=== PATIENT | male | born 1970 | race Hispanic/Latino ===

== ENCOUNTER 2018-05-29 08:00 | Emergency (ER) | payer SELFPAY ==
[2018-05-29 08:43] LABS: Bilirubin Small (Negative); Blood, Urine Small (Negative); Clarity CLEAR (Clear); Glucose, Urine (Dipstick) Negative (Negative); Leukocyte Negative (Negative); Nitrite Negative (Negative); Protein, Urine (Dipstick) 30 mg/dL (Neg-Trace); Specific Gravity, Urine 1.031 (1.002-1.036); pH, Urine 5.5 (5.0-9.0)
[2018-05-29 08:48] LABS: Bacteria/HPF None Seen HPF (None Seen); Hyaline Casts/LPF 0-3 HYALINE CAST LPF (0-3 Hyaline); Squamous Epithelial None Seen HPF (0-3); WBC/HPF 0-3 HPF (0-3)
[2018-05-29 09:00] LABS: #Lymphocytes 0.8 thou/uL (1.20-3.40); #Monocytes 0.6 thou/uL (0.11-0.59); #Neutrophils 2.7 thou/uL (1.40-6.50); %Basophils 0.2 % (0.0-1.0); %Eosinophils 0.3 % (0.0-10.0); %Lymphocytes 19.3 % (21.0-51.0); %Monocytes 14.8 % (0.0-10.0); %Neutrophils 65.4 % (42.0-75.0); Hemoglobin 16.5 g/dL (14.0-18.0); Mean Corpuscular HGB CONC 33.7 g/dL (32.0-36.0); Mean Corpuscular Hemoglobin 31.3 pg (27.0-31.0); Mean Corpuscular Volume 92.9 fL (78.0-98.0); Mean Platelet Volume 6.6 fL (7.4-10.4); Platelet Count 104 thou/uL (130-400); RBC Distribution Width 12.8 % (11.5-14.5); Red Blood Cell (RBC) Count 5.29 mill/uL (4.70-6.10); White Blood Cell (WBC) Count 4.2 thou/uL (4.8-10.8)
[2018-05-29 09:07] LABS: Platelet Morphology Comment Appears Decreased; RBC Morphology Normal
[2018-05-29 09:18] LABS: ALT (SGPT) 238 U/L (8-55); AST (SGOT) 145 U/L (5-34); Albumin 3.8 g/dL (3.5-5.0); Alkaline Phosphatase 125 U/L (40-150); Anion Gap 12 mmol/L (10-20); BUN (Urea Nitrogen) 13 mg/dL (8.9-20.6); Calc. Creatinine Clearance 0 mL/min (70-130); Calcium 9.1 mg/dL (7.8-10.44); Carbon Dioxide 22 mmol/L (22-29); Chloride 103 mmol/L (98-107); Estimated GFR-MDRD Greater than 90; Globulin 4.5 g/dL (2.4-3.5); Glucose 100 mg/dL (70-105); Potassium 4.1 mmol/L (3.5-5.1); Protein, Total 8.3 g/dL (6.0-8.3); Sodium 133 mmol/L (136-145)
--- NOTE | 2018-05-29 11:31 | RAD ---
ACUTE ABDOMINAL SERIES: Date: 05/29/18 PROVIDED CLINICAL HISTORY: Sinus congestion, cough, and vomiting. FINDINGS: Comparison with 09/21/07. Cardiac and mediastinal silhouette is unchanged in appearance. No focal consolidation, pleural fluid, or pneumothorax apparent. Multiple metallic densities are again seen projecting over the right lung base and abdomen. The abdom inal bowel gas pattern is nonspecific. There are no radiographically apparent urinary tract calculi. No evidence for pneumoperitoneum. Stable blunting of the right costophrenic angle. IMPRESSION: No evidence for an acute process. POS: [facility]
== END 2018-05-29 11:34 | disposition home or self-care (01) ==
LOC: ERS 08:00
DX: K59.00 Constipation, unspecified (principal)
CPT/HCPCS: 36415; 74022; 80053; 81003; 81015; 85025; 87804; 93005

== ENCOUNTER 2021-04-12 08:27 | Inpatient (IN) | payer BC, SELFPAY ==
[2021-04-12] MEDS ORDERED: Acetaminophen 500 MG TAB ONE (08:49)
[2021-04-12] MEDS ORDERED: Piperacillin/Tazobactam 3.375 GM VIAL ONE (09:16)
[2021-04-12 09:21] LABS: INR-International Normal Ratio 1.4; Prothrombin Time 17.4 sec (12.0-14.7)
[2021-04-12 09:22] LABS: PTT 38.5 sec (22.9-36.1)
[2021-04-12 09:31] LABS: ALT (SGPT) 49 U/L (8-55); AST (SGOT) 26 U/L (5-34); Albumin 3.7 g/dL (3.5-5.0); Alkaline Phosphatase 103 U/L (40-110); Anion Gap 16 mmol/L (10-20); BUN (Urea Nitrogen) 12 mg/dL (8.4-25.7); Bilirubin, Total 6.4 mg/dL (0.2-1.2); Calc. Creatinine Clearance 0 mL/min (70-130); Calcium 9.4 mg/dL (7.8-10.44); Carbon Dioxide 21 mmol/L (22-29); Chloride 95 mmol/L (98-107); Globulin 4.9 g/dL (2.4-3.5); Glucose 161 mg/dL (70-105); Lipase 110 U/L (8-78); Potassium 3.8 mmol/L (3.5-5.1); Protein, Total 8.6 g/dL (6.0-8.3); Sodium 128 mmol/L (136-145)
[2021-04-12 09:57] LABS: #Lymphocytes 0.8 thou/uL (1.20-3.40); #Monocytes 0.8 thou/uL (0.11-0.59); #Neutrophils 9.8 thou/uL (1.40-6.50); %Lymphocytes 6.8 % (21.0-51.0); %Monocytes 7.1 % (0.0-10.0); %Neutrophils 86.1 % (42.0-75.0); Hemoglobin 14.8 g/dL (14.0-18.0); Mean Corpuscular HGB CONC 33.9 g/dL (32.0-36.0); Mean Corpuscular Hemoglobin 30.4 pg (27.0-31.0); Mean Corpuscular Volume 89.6 fL (78.0-98.0); Mean Platelet Volume 9.1 fL (7.4-10.4); Platelet Count 38 thou/uL (130-400); Platelet Morphology Comment Appears Decreased; RBC Distribution Width 12.1 % (11.5-14.5); RBC Morphology Normal; Red Blood Cell (RBC) Count 4.88 mill/uL (4.70-6.10); White Blood Cell (WBC) Count 11.4 thou/uL (4.8-10.8)
[2021-04-12] MEDS ORDERED: methylPREDNISolone Sod Succ 40 MG VIAL ONE (09:59)
[2021-04-12] MEDS ORDERED: Famotidine/PF 20 mg/2ml Vial ONE (09:59)
[2021-04-12] MEDS ORDERED: diphenhydrAMINE 50 MG/ML VIAL ONE (09:59)
[2021-04-12 12:06] LABS: Lactic Acid 1.2 mmol/L (0.5-2.2)
[2021-04-12 12:26] LABS: Bacteria/HPF None Seen HPF (None Seen); Bilirubin 1+ (Negative); Blood, Urine 1+ (Negative); Clarity Clear (Clear); Glucose, Urine (Dipstick) Normal (Negative); Ketone, Urine Negative (Negative); Leukocyte Negative Leu/uL (Negative); Nitrite Negative (Negative); Protein, Urine (Dipstick) 20 mg/dL (Neg-Trace); RBC/HPF 0-3 HPF (0-3); Squamous Epithelial None Seen HPF (0-3); WBC/HPF 0-3 HPF (0-3)
[2021-04-12] MEDS ORDERED: Ondansetron PF 4 MG/2 ML Vial IVP PRN (15:14)
[2021-04-12 15:52] VITALS: BMI 25.4
[2021-04-12] MEDS: Sodium Chloride 0.9% 1,000 ML IV SCH (16:15)
[2021-04-12] MEDS: cefTRIAXone\\ROCEPHIN 1 GM in Sodium Chloride 0.9% 100 ML IVPB SCH (16:18)
[2021-04-12 17:05] LABS: ALT (SGPT) 42 U/L (8-55); AST (SGOT) 22 U/L (5-34); Albumin 3.2 g/dL (3.5-5.0); Alkaline Phosphatase 89 U/L (40-110); Anion Gap 11 mmol/L (10-20); BUN (Urea Nitrogen) 13 mg/dL (8.4-25.7); Bilirubin, Total 4.6 mg/dL (0.2-1.2); Calc. Creatinine Clearance 125 mL/min (70-130); Calcium 8.8 mg/dL (7.8-10.44); Carbon Dioxide 23 mmol/L (22-29); Chloride 101 mmol/L (98-107); Globulin 4.4 g/dL (2.4-3.5); Glucose 176 mg/dL (70-105); Potassium 4.2 mmol/L (3.5-5.1); Protein, Total 7.6 g/dL (6.0-8.3); Sodium 131 mmol/L (136-145)
[2021-04-12] MEDS: metroNIDAZOLE 500 MG in Premix Bag 1 BAG IVPB SCH (17:45)
[2021-04-12 20:53] LABS: SARS-CoV-2 PCR by NAA Not Detected (NotDetected)
[2021-04-12] MEDS: Docusate 100 MG CAP PO SCH (23:07)
[2021-04-12] MEDS: Famotidine/PF 20 mg/2ml Vial SLOW IVP SCH (23:07)
[2021-04-13] MEDS: metroNIDAZOLE 500 MG in Premix Bag 1 BAG IVPB SCH ×3 (00:05→18:08)
[2021-04-13] MEDS: Sodium Chloride 0.9% 1,000 ML IV SCH ×2 (01:15→06:40)
[2021-04-13 07:11] LABS: #Lymphocytes 0.2 thou/uL (1.20-3.40); #Monocytes 0.4 thou/uL (0.11-0.59); %Basophils 0.5 % (0.0-1.0); %Eosinophils 0.1 % (0.0-10.0); %Lymphocytes 3.1 % (21.0-51.0); %Monocytes 5.7 % (0.0-10.0); %Neutrophils 90.6 % (42.0-75.0); Hemoglobin 12.9 g/dL (14.0-18.0); Mean Corpuscular HGB CONC 33.3 g/dL (32.0-36.0); Mean Corpuscular Hemoglobin 30.5 pg (27.0-31.0); Mean Corpuscular Volume 91.8 fL (78.0-98.0); Mean Platelet Volume 7.7 fL (7.4-10.4); Platelet Count 49 thou/uL (130-400); RBC Distribution Width 12.1 % (11.5-14.5); Red Blood Cell (RBC) Count 4.21 mill/uL (4.70-6.10); White Blood Cell (WBC) Count 7.7 thou/uL (4.8-10.8)
[2021-04-13] MEDS: Famotidine/PF 20 mg/2ml Vial SLOW IVP SCH ×2 (08:52→20:41)
[2021-04-13] MEDS ORDERED: Enoxaparin Sodium 30 MG/0.3 ML SYRINGE SC SCH (09:00)
[2021-04-13] MEDS: Docusate 100 MG CAP PO SCH ×2 (09:00→20:41)
[2021-04-13] MEDS ORDERED: Sodium Bicarbonate 2.5 MEQ/5 ML VIAL ONE (13:29)
[2021-04-13] MEDS ORDERED: Fentanyl 100 MCG/2 ML VIAL ONE (13:29)
[2021-04-13] MEDS ORDERED: Midazolam HCl 2 mg/2 ml Vial ONE (13:29)
[2021-04-13] MEDS: HYDROcodone/Acetaminophen 10/325 mg Tablet PO PRN (16:58)
[2021-04-13] MEDS: cefTRIAXone\\ROCEPHIN 1 GM in Sodium Chloride 0.9% 100 ML IVPB SCH (16:59)
[2021-04-13] MEDS: Polyethylene Glycol 3350 17 GM Packet PO SCH (16:59)
[2021-04-13 17:42] LABS: Body Fluid Source Abscess Fluid; Clarity Cloudy/Turbid (Clear); Tube # EDTA
[2021-04-13 17:43] LABS: BF Color Red
[2021-04-13] MEDS ORDERED: Morphine 4 MG/ML VIAL ONE (18:30)
[2021-04-13] MEDS ORDERED: Morphine 4 MG/ML VIAL SLOW IVP SCH (18:45)
[2021-04-14] MEDS: Sodium Chloride 0.9% 1,000 ML IV SCH ×3 (00:05→18:36)
[2021-04-14] MEDS: metroNIDAZOLE 500 MG in Premix Bag 1 BAG IVPB SCH ×3 (00:06→16:35)
[2021-04-14] MEDS: Morphine 4 MG/ML VIAL SLOW IVP PRN ×3 (00:07→16:31)
[2021-04-14 08:00] LABS: #Lymphocytes 0.7 thou/uL (1.20-3.40); #Monocytes 0.6 thou/uL (0.11-0.59); #Neutrophils 6.6 thou/uL (1.40-6.50); %Eosinophils 0.2 % (0.0-10.0); %Monocytes 7.9 % (0.0-10.0); ALT (SGPT) 33 U/L (8-55); AST (SGOT) 17 U/L (5-34); Albumin 2.6 g/dL (3.5-5.0); Alkaline Phosphatase 80 U/L (40-110); Anion Gap 11 mmol/L (10-20); BUN (Urea Nitrogen) 12 mg/dL (8.4-25.7); Calc. Creatinine Clearance 124 mL/min (70-130); Calcium 8.1 mg/dL (7.8-10.44); Carbon Dioxide 24 mmol/L (22-29); Chloride 105 mmol/L (98-107); Globulin 3.5 g/dL (2.4-3.5); Glucose 125 mg/dL (70-105); Hemoglobin 13.2 g/dL (14.0-18.0); Lipase 378 U/L (8-78); Magnesium 1.7 mg/dL (1.6-2.6); Mean Corpuscular HGB CONC 33.2 g/dL (32.0-36.0); Mean Corpuscular Hemoglobin 30.7 pg (27.0-31.0); Mean Corpuscular Volume 92.6 fL (78.0-98.0); Mean Platelet Volume 7.5 fL (7.4-10.4); Platelet Count 75 thou/uL (130-400); Potassium 4.1 mmol/L (3.5-5.1); Protein, Total 6.1 g/dL (6.0-8.3); RBC Distribution Width 12.3 % (11.5-14.5); Sodium 136 mmol/L (136-145)
[2021-04-14] MEDS: Polyethylene Glycol 3350 17 GM Packet PO SCH (09:23)
[2021-04-14] MEDS: Docusate 100 MG CAP PO SCH ×2 (09:24→21:37)
[2021-04-14] MEDS: Famotidine/PF 20 mg/2ml Vial SLOW IVP SCH ×2 (09:24→21:38)
[2021-04-14] MEDS: cefTRIAXone\\ROCEPHIN 1 GM in Sodium Chloride 0.9% 100 ML IVPB SCH (16:34)
[2021-04-14] MEDS: HYDROcodone/Acetaminophen 10/325 mg Tablet PO PRN (21:36)
[2021-04-15] MEDS: metroNIDAZOLE 500 MG in Premix Bag 1 BAG IVPB SCH ×3 (00:15→16:14)
[2021-04-15] MEDS: Sodium Chloride 0.9% 1,000 ML IV SCH ×3 (04:15→20:33)
[2021-04-15 07:57] LABS: #Lymphocytes 0.7 thou/uL (1.20-3.40); #Monocytes 0.4 thou/uL (0.11-0.59); #Neutrophils 4.3 thou/uL (1.40-6.50); %Eosinophils 0.8 % (0.0-10.0); %Lymphocytes 13.1 % (21.0-51.0); %Monocytes 7.9 % (0.0-10.0); %Neutrophils 78.2 % (42.0-75.0); Hemoglobin 12.2 g/dL (14.0-18.0); Mean Corpuscular HGB CONC 33.5 g/dL (32.0-36.0); Mean Corpuscular Hemoglobin 31.2 pg (27.0-31.0); Mean Corpuscular Volume 93.2 fL (78.0-98.0); Platelet Count 52 thou/uL (130-400); RBC Distribution Width 12.2 % (11.5-14.5); White Blood Cell (WBC) Count 5.5 thou/uL (4.8-10.8)
[2021-04-15 08:03] LABS: ALT (SGPT) 26 U/L (8-55); AST (SGOT) 11 U/L (5-34); Albumin 2.6 g/dL (3.5-5.0); Alkaline Phosphatase 88 U/L (40-110); Anion Gap 9 mmol/L (10-20); BUN (Urea Nitrogen) 8 mg/dL (8.4-25.7); Bilirubin, Total 0.9 mg/dL (0.2-1.2); Calc. Creatinine Clearance 130 mL/min (70-130); Calcium 7.7 mg/dL (7.8-10.44); Carbon Dioxide 26 mmol/L (22-29); Chloride 103 mmol/L (98-107); Globulin 3.4 g/dL (2.4-3.5); Glucose 120 mg/dL (70-105); Magnesium 1.7 mg/dL (1.6-2.6); Potassium 3.4 mmol/L (3.5-5.1); Sodium 135 mmol/L (136-145)
[2021-04-15] MEDS: Docusate 100 MG CAP PO SCH ×2 (09:20→20:26)
[2021-04-15] MEDS: Polyethylene Glycol 3350 17 GM Packet PO SCH (09:20)
[2021-04-15] MEDS: Famotidine/PF 20 mg/2ml Vial SLOW IVP SCH (09:20)
[2021-04-15] MEDS: HYDROcodone/Acetaminophen 10/325 mg Tablet PO PRN (09:28)
[2021-04-15] MEDS ORDERED: Magnesium 2 GM/50 ML 2 GM in Premix Bag 1 BAG IVPB SCH (10:00)
[2021-04-15] MEDS: Potassium Chloride 20 MEQ TAB PO SCH ×2 (11:48→16:14)
[2021-04-15] MEDS: cefTRIAXone\\ROCEPHIN 1 GM in Sodium Chloride 0.9% 100 ML IVPB SCH (16:01)
[2021-04-15] MEDS: Acetaminophen 325 MG TAB PO PRN (16:09)
[2021-04-15] MEDS: Morphine 4 MG/ML VIAL SLOW IVP PRN (16:10)
[2021-04-15] MEDS: Famotidine 20 MG TAB PO SCH (20:27)
[2021-04-16] MEDS: Morphine 4 MG/ML VIAL SLOW IVP PRN (00:36)
[2021-04-16] MEDS: metroNIDAZOLE 500 MG in Premix Bag 1 BAG IVPB SCH (01:13)
[2021-04-16] MEDS: Clindamycin/D5W 600 MG in Premix Bag 1 BAG IVPB SCH ×2 (01:14→08:21)
[2021-04-16] MEDS: Acetaminophen 325 MG TAB PO PRN (06:37)
[2021-04-16] MEDS: Famotidine 20 MG TAB PO SCH (08:22)
[2021-04-16] MEDS: Polyethylene Glycol 3350 17 GM Packet PO SCH (08:22)
[2021-04-16] MEDS: Docusate 100 MG CAP PO SCH (08:22)
[2021-04-16 08:58] VITALS: BP 107/70
[2021-04-16 09:02] LABS: ALT (SGPT) 22 U/L (8-55); AST (SGOT) 9 U/L (5-34); Albumin 2.7 g/dL (3.5-5.0); Alkaline Phosphatase 86 U/L (40-110); Anion Gap 9 mmol/L (10-20); BUN (Urea Nitrogen) 7 mg/dL (8.4-25.7); Calc. Creatinine Clearance 132 mL/min (70-130); Calcium 8.1 mg/dL (7.8-10.44); Carbon Dioxide 27 mmol/L (22-29); Chloride 103 mmol/L (98-107); Globulin 3.8 g/dL (2.4-3.5); Glucose 101 mg/dL (70-105); Lipase 23 U/L (8-78); Potassium 4.4 mmol/L (3.5-5.1); Protein, Total 6.5 g/dL (6.0-8.3); Sodium 135 mmol/L (136-145)
[2021-04-16 09:06] LABS: #Eosinphils 0.1 thou/uL (0.0-0.7); #Lymphocytes 0.8 thou/uL (1.20-3.40); #Monocytes 0.6 thou/uL (0.11-0.59); #Neutrophils 4.8 thou/uL (1.40-6.50); %Basophils 0.1 % (0.0-1.0); %Eosinophils 1.7 % (0.0-10.0); %Lymphocytes 12.1 % (21.0-51.0); %Monocytes 8.8 % (0.0-10.0); %Neutrophils 77.4 % (42.0-75.0); Hemoglobin 12.8 g/dL (14.0-18.0); Mean Corpuscular HGB CONC 32.4 g/dL (32.0-36.0); Mean Corpuscular Hemoglobin 30.2 pg (27.0-31.0); Mean Corpuscular Volume 93.3 fL (78.0-98.0); Mean Platelet Volume 7.7 fL (7.4-10.4); Platelet Count 98 thou/uL (130-400); RBC Distribution Width 12.3 % (11.5-14.5); Red Blood Cell (RBC) Count 4.23 mill/uL (4.70-6.10); White Blood Cell (WBC) Count 6.2 thou/uL (4.8-10.8)
[2021-04-16 12:23] VITALS: TEMP 98.4
[2021-04-16] MEDS: HYDROcodone/Acetaminophen 10/325 mg Tablet PO PRN (12:23)
[2021-04-16] MEDS: cefTRIAXone\\ROCEPHIN 1 GM in Sodium Chloride 0.9% 100 ML IVPB SCH (15:32)
[2021-04-16] MEDS: Sodium Chloride 0.9% 1,000 ML IV SCH (15:34)
== END 2021-04-16 16:53 | disposition home or self-care (01) | DRG 871 ==
LOC: ERS 08:27 → ERHOLD 13:30 → T4-B 15:35 → OBSVTOIN 04-13 08:45
PROVIDERS: ADMIT Internal Medicine; ATTEND Internal Medicine
PROC: 0F9130Z Drainage of Right Lobe Liver with Drainage Device, Percutaneous Approach (ICD-10-PCS; principal; 2021-04-13)
DX: A40.8 Other streptococcal sepsis (principal); K75.0 Abscess of liver; K85.90 Acute pancreatitis without necrosis or infection, unspecified; E87.1 Hypo-osmolality and hyponatremia; E87.2 Acidosis; R65.20 Severe sepsis without septic shock; Z20.822 Contact with and (suspected) exposure to COVID-19; D69.6 Thrombocytopenia, unspecified; K59.00 Constipation, unspecified; E83.42 Hypomagnesemia; E87.6 Hypokalemia; F17.290 Nicotine dependence, other tobacco product, uncomplicated; Z88.1 Allergy status to other antibiotic agents; Z91.041 Radiographic dye allergy status; Z71.6 Tobacco abuse counseling
CPT/HCPCS: 36415; 47010; 74177; 76705; 77002; 80053; 81003; 81015; 82248; 83605; 83690; 83735; 85025; 85060; 85610; 85730; 87040; 87070; 87086; 87186; 87205; 89051; 94760; 96367; 96375; 96376; G0378; J0696; J1200; J2250; J2270; J2543; J2920; J3010; J3475; J3490; J7050; S0028; U0003; U0005

== ENCOUNTER 2021-12-31 11:32 | Emergency (ER) | payer BC ==
[2021-12-31 12:49] LABS: #Lymphocytes 0.9 thou/uL (1.20-3.40); #Monocytes 0.4 thou/uL (0.11-0.59); #Neutrophils 3.1 thou/uL (1.40-6.50); %Basophils 0.5 % (0.0-1.0); %Monocytes 9.3 % (0.0-10.0); %Neutrophils 69.2 % (42.0-75.0); Mean Corpuscular HGB CONC 33.2 g/dL (32.0-36.0); Mean Corpuscular Hemoglobin 30.9 pg (27.0-31.0); Mean Platelet Volume 8.5 fL (7.4-10.4); Platelet Count 58 thou/uL (130-400); RBC Distribution Width 12.8 % (11.5-14.5); Red Blood Cell (RBC) Count 4.86 mill/uL (4.70-6.10); White Blood Cell (WBC) Count 4.5 thou/uL (4.8-10.8)
[2021-12-31] MEDS ORDERED: diphenhydrAMINE 50 MG/ML VIAL ONE (12:50)
[2021-12-31] MEDS ORDERED: Ketorolac Tromethamine 30 MG/ML VIAL ONE (12:50)
[2021-12-31] MEDS ORDERED: methylPREDNISolone Sod Succ 40 MG VIAL ONE (12:50)
[2021-12-31] MEDS ORDERED: Famotidine/PF 20 mg/2ml Vial ONE ×2 (12:50→13:02)
[2021-12-31 12:56] LABS: Bacteria/HPF None Seen HPF (None Seen); Bilirubin Negative (Negative); Blood, Urine Trace (Negative); Clarity Clear (Clear); Glucose, Urine (Dipstick) Normal (Negative); Ketone, Urine Negative (Negative); Leukocyte Negative Leu/uL (Negative); Nitrite Negative (Negative); Protein, Urine (Dipstick) Negative (Neg-Trace); Specific Gravity, Urine 1.016 (1.002-1.036); Squamous Epithelial None Seen HPF (0-3); Urobilinogen Normal mg/dL (Less than 2); WBC/HPF 0-3 HPF (0-3); pH, Urine 7.5 (5.0-9.0)
[2021-12-31 12:57] LABS: ALT (SGPT) 18 U/L (8-55); AST (SGOT) 13 U/L (5-34); Albumin 3.9 g/dL (3.5-5.0); Alkaline Phosphatase 96 U/L (40-110); Anion Gap 8 mmol/L (10-20); BUN (Urea Nitrogen) 9 mg/dL (8.4-25.7); Bilirubin, Total 1.7 mg/dL (0.2-1.2); CK (CPK) 78 U/L (30-200); Calc. Creatinine Clearance 0 mL/min (70-130); Carbon Dioxide 28 mmol/L (22-29); Estimated GFR 108; Globulin 3.9 g/dL (2.4-3.5); Glucose 96 mg/dL (70-105); Potassium 4.1 mmol/L (3.5-5.1); Protein, Total 7.8 g/dL (6.0-8.3)
[2021-12-31 13:25] LABS: Chloride 106 mmol/L (98-107); Sodium 138 mmol/L (136-145)
[2021-12-31] MEDS ORDERED: Iopamidol-370 76% 500 ML 1 ML ONE (14:34)
== END 2021-12-31 15:52 | disposition home or self-care (01) ==
LOC: ERS 11:32
DX: M54.50 Low back pain, unspecified (principal); R79.89 Other specified abnormal findings of blood chemistry; R31.29 Other microscopic hematuria; F17.290 Nicotine dependence, other tobacco product, uncomplicated
CPT/HCPCS: 36415; 74177; 80053; 81003; 81015; 82550; 85025; 94760; 96374; 96375; J1200; J1885; J2920; Q9967; S0028